=== PATIENT | female | born 1940 | race Caucasian/White ===

== ENCOUNTER 2019-02-12 14:55 | Emergency (ER) | payer OTHER ==
[~2019-02-12] VITALS: Ht 157.5 cm; Wt 54.4 kg
[~2019-02-12 14:55] MED LIST: ACETAMINOPHN-T1 EACH PO; ADULT LOW DOSE81 MG PO; AMILORIDE HCL-1 EACH PO; AUGMENTIN 875875 M1 PO; CALCIUM 600 +1 EAC1 PO; CLONAZEPAM 1 MG1 M1 PO; HYDROCODON-ACE1 EAC7 PO; HYDROCODONE-AP1 EAC6 PO; KLOR-CON20 MEQ PO; LIPITOR40 MG PO; MOBIC7.5 MG PO; MULTI-VITAMIN1 EAC5 PO; NABUMETONE 500500 M1 PO; NEURONTIN 300300 M1 PO; RELAFEN500 MG PO; STERIOD CREAM; TRAMADOL 50 MG50 MG PO; TRAMADOL PO; ULTRACET TABLE1 EACH PO
[2019-02-12] MEDS ORDERED: TRAMADOL 50 MG50 MG PO (16:24)
[2019-02-12] MEDS ORDERED: ROBAXIN500 MG PO (16:24)
[2019-02-12 17:45] VITALS: BP 139/66
== END 2019-02-12 17:15 | disposition home or self-care (01) ==
LOC: ER 14:55
DX: S46.811A Strain of other muscles, fascia and tendons at shoulder and upper arm level, right arm, initial encounter (principal); M43.6 Torticollis; Z88.8 Allergy status to other drugs, medicaments and biological substances; Z88.2 Allergy status to sulfonamides; Z98.890 Other specified postprocedural states; Z90.89 Acquired absence of other organs; Z90.49 Acquired absence of other specified parts of digestive tract; Z90.11 Acquired absence of right breast and nipple; X50.1XXA Overexertion from prolonged static or awkward postures, initial encounter; Y92.89 Other specified places as the place of occurrence of the external cause; Y93.E5 Activity, floor mopping and cleaning; Y99.8 Other external cause status

== ENCOUNTER → 2019-06-23 | Outpatient (CLI) | payer OTHER ==
[~2019-06-23] MED LIST changes: +DORYX MPC120 MG PO; +FLUOROURACIL40 GM TOP; +HYDROCHLOROT PO; +ROBAXIN500 MG PO
== END ==
LOC: MRI 13:27
DX: M47.26 Other spondylosis with radiculopathy, lumbar region (principal); G89.29 Other chronic pain

== ENCOUNTER → 2019-07-07 | Outpatient (CLI) | payer OTHER ==
[~2019-07-07] VITALS: Ht 157.5 cm; Wt 55.3 kg
[2019-07-07 09:51] VITALS: BP 133/88
--- NOTE | 2019-07-07 09:52 | NUR ---
Pain Clinic Assessment: 1. History of Osteoarthritis: Not Applicable History of Rheumatoid Arthritis: Not Applicable 2. Height: 5 ft. 2 in. 157.5 cm. Weight: 122.0 lb. oz. 55.339 kg. Patient's BMI: 22.3 3. Vital Signs: BP: 133/88 Pulse: 76 Resp: 16 Temp: 02 Sat: 96 ECG Mon: 4. Pain Intensity: 5 5. Fall Risk: Dizziness: Y Needs help standing or walking: N Fallen in the last 3 months: N Fall risk comments: 6. Patient on Blood Thinner: None 7. History of Hypertension: Y 8. Opioid Therapy greater than 6 weeks: N Opiate Contract Signed: 9. Risk Assessment Tool Provided: 10. Functional Assessment Tool: 11. Recreational Drug Use: Never Drug Type: Tobacco Use: Never Smoker Tobacco Type: Amount or Packs/day: How Many Years: Alcohol Use: Yes Frequency: Daily Quant: 2
--- NOTE | 2019-07-29 11:13 | HPC ---
[facility] [address] [place] [address] PAIN MANAGEMENT CONSULTATION Name: EMILY BOSWELL Room #: REG FELICIANO ResendizSrinivasaAndrade.#: [id number] Admission: 07/07/19 Attend Phys: Jigna Weber MD Discharge: Date of : 36 Report #: [id number] THIS REPORT FOR: //name// CC: Jigna Coates DATE OF SERVICE: 07/07/2019 CHIEF COMPLAINT: Back pain. HISTORY: The patient is an 78-year-old female who has been referred to the pain clinic because of pain and discomfort, which radiates down into the anterior portion of her legs on both sides. This involves the calf. Pain has been problematic for about 10 weeks. She was involved in pain. Since that time, she has noticed a worsening of her pain and discomfort. She describes it as an aching, throbbing sensation. Pain is worse with standing as well as can be problematic with sitting. She has not had back surgery. The patient has come to the pain clinic with the thoughts of undergoing an epidural injection to help with her pain and discomfort. ALLERGIES: DEMEROL, SULFA ANTIBIOTICS. CURRENT MEDICATIONS: Hydrochlorot 50 mg, doxycycline 120 mg, fluorouracil 40 grams topically as prescribed, hydrocodone 5/325 q.4 hours p.r.n., multivitamin, Caltrate 600 mg/vitamin D two tablets daily and clonazepam 1 mg at bedtime, potassium 20 mEq, amiloride/hydrochlorothiazide, and Lipitor 40 mg. PAST MEDICAL HISTORY: Breast cancer in 1995, skin cancers. PAST SURGICAL HISTORY: Hemorrhoidectomy in 1978, tonsillectomy 1980, appendectomy in 1984, left mastectomy in 1995, cataract surgery 2006, 2009. REVIEW OF SYSTEMS: Generally good health, decreased appetite, fatigue, eye disease, wears glasses, blurred vision, shortness of breath lying flat, constipation, abdominal pain, frequent recurring headaches, lightheadedness, numbness and tingling sensation, memory loss, confusion, nervousness, depression, and insomnia. LABORATORY DATA: MRI of the lumbar spine dated 06/23/2017: 1. L2-L3, there is a broad-based posterior disk bulge, slightly asymmetric prominent within the left paracentral region with mild left paracentral thecal sac stenosis. There is [id number] bilateral facet arthrosis. There is no significant central canal stenosis or neural foraminal stenosis. 2. L3-L4. There is a mild broad-based posterior disk bulge. There is no significant central spinal canal stenosis. Mild bilateral facet arthrosis. 3. L4-L5, there is a broad-based posterior disk bulge. There is no significant [address] [address] PAIN MANAGEMENT CONSULTATION Name: EMILY BOSWELL Room #: REG CL Devyn#: [id number] Admission: 07/07/19 Attend Phys: Jigna Weber MD Discharge: Date of : 36 Report #: [id number] central spinal canal stenosis. There is a iiyf-ei-aflgxrso bilateral facet arthrosis. 4. L5-S1, there is a minimal posterior disk bulge. There is moderate bilateral facet arthrosis. PAIN CLINIC ASSESSMENT AND PQRS: 1. The patient is not being treated for osteoarthritis. 2. Height 5 feet 2 inches, weight 122 pounds, BMI is 23.3. 3. Vital signs: Blood pressure 133/88, pulse 76, respiratory rate 16, room air saturation 96%. 4. Pain intensity 5/10. 5. Fall history: The patient has not fallen in the last 3 months. 6. Blood thinner. The patient is not on a blood thinning medication. 7. Hypertension. The patient is being treated for hypertension. 8. Opioids greater than 6 weeks. The patient is not on an opioid regimen through the pain clinic. 9. Risk assessment tool, low for opioid use. 10. Functional assessment tool . 11. Recreational drug use: The patient denies. 12. Tobacco: The patient has never smoked. 13. Alcohol: The patient drinks 2 alcoholic beverages daily. PHYSICAL EXAMINATION: GENERAL: The patient is a well-developed, well-nourished white female. Appears her stated age. She is alert and oriented x 3. Her affect is appropriate. Speech is fluent. HEENT: Normocephalic, asymmetric. Hearing is within normal limits. HEART: Regular rate. ABDOMEN: Nontender. MUSCULOSKELETAL: The patient is without significant scoliosis, kyphosis or lordosis. The patient has pain and discomfort in the lower portion of her back that is radiating down into the L4-L5 dermatomal distribution. This involves both legs. IMPRESSION: Lumbar radiculopathy, L4-L5 dermatomal distribution, left and right. Breast cancer in 1995, skin cancers. RECOMMENDATIONS: We discussed treatment options with the patient. Risks and benefits of an epidural steroid injection were discussed. They include but are not limited to infection, worsening of pain, no improvement in pain, worsening of her mild fascial components. She elects to proceed. PROCEDURE NOTE: The patient was taken to the procedure area. She was then assisted in getting on the examination table. Her back was sterilely prepped with a Betadine solution. A 0.25% bupivacaine was used to anesthetize the L4-L5 area. A 17-gauge Tuohy with loss of resistance technique was used to gain [address] [address] PAIN MANAGEMENT CONSULTATION Name: EMILY BOSWELL Room #: REG [facility]#: [id number] Admission: 07/07/19 Attend Phys: Jigna Weber MD Discharge: Date of : 36 Report #: [id number] access to the epidural space. Aspiration was negative. A total of 80 mg Depo-Medrol, 40 mg triamcinolone and 2 mL of 0.25% bupivacaine was injected. The patient tolerated the procedure well. She was taken to the recovery room where she remained for an appropriate amount of time. Her pain decreased from 5 to 0 at the time of discharge. She will follow up in the future as needed. We would like to thank you for letting us participate in her care. We hope she continues to improve. <ELECTRONICALLY SIGNED> By: Jigna Weber MD 07/29/19 [id number] Jigna Weber MD /nt
== END | disposition home or self-care (01) ==
LOC: PAIN 06:47
DX: M54.16 Radiculopathy, lumbar region (principal); G89.29 Other chronic pain; Z98.890 Other specified postprocedural states; Z79.899 Other long term (current) drug therapy; Z88.2 Allergy status to sulfonamides; Z88.8 Allergy status to other drugs, medicaments and biological substances